=== PATIENT | male | born 1970 | race Caucasian/White ===

== ENCOUNTER → 2017-10-03 | Outpatient (REF) | payer OTHER ==
[2017-10-04 08:06] LABS: LDL DIRECT 109 mg/dL (0-99)
== END ==
LOC: M LAB REF 12:18
DX: E78.5 Hyperlipidemia, unspecified (principal)
CPT/HCPCS: 83721

== ENCOUNTER → 2018-09-04 | Outpatient (CLI) | payer OTHER ==
[2018-09-08 08:11] LABS: F003-IGE CODFISH <0.10 kU/L (Class 0); F013-IGE PEANUT <0.10 kU/L (Class 0); F023-IGE CRAB <0.10 kU/L (Class 0); F024-IGE SHRIMP <0.10 kU/L (Class 0); F037-IGE MUSSEL <0.10 kU/L (Class 0); F040-IGE TUNA <0.10 kU/L (Class 0); F041-IGE SALMON <0.10 kU/L (Class 0); F042-IGE HADDOCK <0.10 kU/L (Class 0); F080-IGE LOBSTER <0.10 kU/L (Class 0); F207-IGE CLAM <0.10 kU/L (Class 0); F258-IGE SQUID <0.10 kU/L (Class 0); F290-IGE OYSTER <0.10 kU/L (Class 0); F338-IGE SCALLOP <0.10 kU/L (Class 0)
== END ==
LOC: M SMT 10:21
PROVIDERS: ATTEND Allergy & Immunology Allergy
DX: Z91.010 Allergy to peanuts (principal); Z91.013 Allergy to seafood

== ENCOUNTER → 2020-02-02 | Outpatient (REF) | payer OTHER | LOC: M LAB REF 12:58 | PROVIDERS: ATTEND Internal Medicine | DX: L60.8 Other nail disorders (principal) ==

== ENCOUNTER → 2021-12-09 | Outpatient (CLI) | payer OTHER ==
[~2021-12-09] MED LIST: MULT-90 PO; ROSU20TA5 PO; VALS320T2 PO
== END ==
LOC: M LABSMTC 09:40
PROVIDERS: ATTEND Anesthesiology
DX: Z01.818 Encounter for other preprocedural examination (principal); Z11.52 Encounter for screening for COVID-19

== ENCOUNTER → 2022-01-09 | Outpatient (CLI) | payer OTHER ==
[2022-01-09 14:19] LABS: BASO # 0.1 10^3/uL (0.0-0.2); BASO % 1.3 % (0.0-1.0); EOS # 0.7 10^3/uL (0.0-0.5); EOS % 10.3 % (0.0-3.0); HEMOGLOBIN 15.6 g/dl (13.5-17.5); LYMPH # 2.1 10^3/uL (1.5-5.0); LYMPH % 29.9 % (24.0-44.0); MEAN CORPUSCULAR HEMOGLOBIN 31.2 pg (27.0-33.0); MEAN CORPUSCULAR HGB CONC 32.5 g/dl (32.0-36.5); MONO # 0.5 10^3/uL (0.0-0.8); MONO % 7.2 % (2.0-8.0); NEUTROPHILS # 3.6 10^3/uL (1.5-8.5); NEUTROPHILS % 50.7 % (36.0-66.0); PLATELET COUNT, AUTOMATED 257 10^3/uL (150-450); WHITE BLOOD COUNT 7.1 10^3/uL (4.0-10.0)
[2022-01-09 14:35] LABS: ALBUMIN 4.1 G/DL (3.2-5.2); ALT/SGPT 42 U/L (7.0-40); BILIRUBIN,TOTAL 0.5 MG/DL (0.3-1.2); BLOOD UREA NITROGEN 17 MG/DL (9-23); CALCIUM LEVEL 9.7 MG/DL (8.5-10.1); CARBON DIOXIDE LEVEL 29 MMOL/L (20-31); CHLORIDE LEVEL 100 MMOL/L (98-107); CREATININE FOR GFR 0.91 MG/DL (0.70-1.30); GLOMERULAR FILTRATION RATE > 60.0 (>56); GLUCOSE, FASTING 116 MG/DL (60-100); POTASSIUM SERUM 4.6 MMOL/L (3.5-5.1); SODIUM LEVEL 138 MMOL/L (136-145)
[2022-01-09 18:31] LABS: HEMOGLOBIN A1c 5.4 % (4.0-6.0)
== END ==
LOC: M PLALAB 09:14
PROVIDERS: ATTEND Physician Assistant
DX: R73.01 Impaired fasting glucose (principal); Z12.5 Encounter for screening for malignant neoplasm of prostate
CPT/HCPCS: 36415; 80053; 83036; 85025; G0103

== ENCOUNTER → 2022-04-17 | Outpatient (CLI) | payer OTHER | LOC: M LABSMTC 09:19 | PROVIDERS: ATTEND Anesthesiology | DX: Z01.818 Encounter for other preprocedural examination (principal); Z11.52 Encounter for screening for COVID-19 ==

== ENCOUNTER 2022-04-22 06:34 | Day surgery (SDC) | payer OTHER ==
[~2022-04-22] VITALS: Ht 185.4 cm; Wt 83.8 kg
[~2022-04-22 06:34] MED LIST changes: +NS 1,000 ML IV ONE
[2022-04-22] MEDS ORDERED: SIMETHICONE 40MG/0.6ML DROPS 30ML As Ordered ONE (06:48)
[2022-04-22] MEDS ORDERED: propofoL 200 MG/20 ML VIAL As Ordered ONE (07:27)
[2022-04-22] MEDS ORDERED: LIDOCAINE 2% INJ 100 MG/5 ML SYRINGE As Ordered ONE (07:27)
[2022-04-22 08:17] VITALS: BP 118/57
== END 2022-04-22 08:29 | disposition home or self-care (01) ==
LOC: M OPP 06:34
PROVIDERS: ATTEND Internal Medicine Gastroenterology
DX: Z12.11 Encounter for screening for malignant neoplasm of colon (principal); D12.6 Benign neoplasm of colon, unspecified; K64.0 First degree hemorrhoids; K57.30 Diverticulosis of large intestine without perforation or abscess without bleeding; E78.00 Pure hypercholesterolemia, unspecified; I10 Essential (primary) hypertension; Z79.02 Long term (current) use of antithrombotics/antiplatelets; Z79.899 Other long term (current) drug therapy